=== PATIENT | male | born 1975 | race Two or more races ===

== ENCOUNTER 2017-09-16 23:50 | Emergency (ER) | payer OTHER ==
[~2017-09-16] VITALS: Ht 177.8 cm; Wt 113.5 kg
[2017-09-16 23:55] VITALS: Ht 177.8 cm; Wt 113.5 kg
--- NOTE | 2017-09-17 01:25 | ERD ---
ER Documentation Chief Complaint Chief Complaint hemorrhoid pain HPI The patient is a 42-year-old male, presenting to the ER because of hemorrhoidal pain. He had hemorrhoid surgery about 16 weeks ago in [place]. He had a plastic device placed inside the rectum and was supposed to have this device removed 8 weeks ago. However he did not go back to see his surgeon, he saw his primary care physician Dr. Molina yesterday who asked him to go to the ER.. He denies fever, chills, neck pain, chest pain with exertion/vomiting/ palpitation/diaphoresis. He complains of minimal right-sided chest discomfort due to right chest surgery from complications of pneumonia in 2009 in [facility]. He does not smoke nor drink ROS All systems reviewed and are negative except as per history of present illness. Medications Home Meds No Active Prescriptions or Reported Meds Allergies Allergies: Uncoded Allergies: antibiotics (Adverse Reaction, Mild, rashes, 09/17/17) Physical Exam Vitals Vital Signs Date Time Temp Pulse Resp B/P Pulse Ox O2 Delivery O2 Flow Rate FiO2 09/17/17 01:30 97.5 75 18 130/88 98 Room Air 09/16/17 23:55 97.5 80 18 138/85 97 Physical Exam Const: No acute distress. Head: Atraumatic. Eyes: Normal Conjunctiva. ENT: Normal External Ears, Nose and Mouth. Neck: Full range of motion. No meningismus. Resp: Clear to auscultation bilaterally. Cardio: Regular rate and rhythm. Abd: Soft, non distended, normal bowel sounds, non tender. Skin: No petechiae or rashes. Back: No midline or flank tenderness. Ext: No cyanosis, or edema. Rectal: There are two plastic strings extending beyond the rectum. No active bleeding Neur: Awake and alert. No focal deficit Psych: Normal Mood and Affect. Result Diagram: 09/17/1710409/17/17104 Results 24 hrs Laboratory Tests Test 09/17/17 01:05 White Blood Count 4.310^3/ul Red Blood Count 5.2910^6/ul Hemoglobin 16.5g/dl Hematocrit 46.9% Mean Corpuscular Volume 88.7fl Mean Corpuscular Hemoglobin 31.2pg Mean Corpuscular Hemoglobin Concent 35.2g/dl Red Cell Distribution Width 12.9% Platelet Count 49350^3/UL Mean Platelet Volume 10.8fl Neutrophils % 49.5% Lymphocytes % 39.4% Monocytes % 7.6% Eosinophils % 2.1% Basophils % 1.2% Nucleated Red Blood Cells % 0.0/100WBC Neutrophils # 2.110^3/ul Lymphocytes # 1.710^3/ul Monocytes # 0.310^3/ul Eosinophils # 0.110^3/ul Basophils # 0.110^3/ul Nucleated Red Blood Cells # 0.010^3/ul Prothrombin Time 13.2Sec Prothrombin Time Ratio 1.0 INR International Normalized Ratio 1.00 Activated Partial Thromboplast Time 28.3Sec Sodium Level 140mmol/L Potassium Level 4.3mmol/L Chloride Level 107mmol/L Carbon Dioxide Level 25mmol/L Anion Gap 12 Blood Urea Nitrogen 13mg/dl Creatinine 0.90mg/dl Glucose Level 140mg/dl Calcium Level 9.3mg/dl Total Bilirubin 0.3mg/dl Direct Bilirubin 0.00mg/dl Indirect Bilirubin 0.3mg/dl Aspartate Amino Transf (AST/SGOT) 61IU/L Alanine Aminotransferase (ALT/SGPT) 59IU/L Alkaline Phosphatase 88IU/L Total Protein 8.0g/dl Albumin 4.0g/dl Globulin 4.00g/dl Albumin/Globulin Ratio 1.00 Procedures/[place] [id number] Radiology Main Line: [phone] DIAGNOSTIC IMAGING REPORT Patient: HEATHER REEVES : 1975 Age: 42 Sex: M [id number] DOS: 09/17/17 [facility] Ordering MD: NATALYA VINES MD Location: E/R Room/Bed: PROCEDURE: CT Chest without contrast. CLINICAL INDICATION: Chest pain TECHNIQUE: CT scan of the chest without contrast was performed on a multidetector high-resolution CT scanner. Coronal and sagittal reformatted images were obtained from the axial source images. The total exam CTDI equals 16.37 mGymGy and the total exam DLP equals 668.66 mGy.cm mGy-cm. One or more of the following dose reduction techniques were used: automated exposure control, adjustment of the mA and/or kV according to patient size, or use of iterative reconstruction technique. COMPARISON: DR BROWN 09/17/2017 FINDINGS: There is marked elevation of the right hemidiaphragm and linear atelectasis in the right middle and lower lobes. Right upper lobe linear densities are also seen. Mass effect on the right heart is noted. There is no subphrenic fluid collection. No focal opacification, pleural effusion, pneumothorax, or nodules are seen. No mass lesion to suggest neoplasm is identified. The central tracheobronchial tree is clear. The mediastinum is unremarkable without evidence for mass or lymphadenopathy. The vascular structures of the mediastinum are normal in course and caliber. Coronary artery calcifications are present. The heart size is normal without evidence for pericardial thickening or effusion. The thyroid gland is normal. The axillary regions, subpectoral regions, and supraclavicular regions are all unremarkable. The surrounding chest wall is unremarkable. Imaging obtained through the upper abdomen demonstrates an enlarged, nodular liver with severe caudate lobe hypertrophy. Recanalized paraumbilical vein and collateral vessels are visualized. The spleen is enlarged. There is an old posterior left sixth rib fracture. No osteolytic or osteoblastic lesion is detected. IMPRESSION: 1. Marked elevation of the right hemidiaphragm and associated atelectasis. 2. No fluid collection, mass, lymphadenopathy, or focal acute infiltrate is identified. 3. Severe coronary calcification, advanced for age.. 4. Cirrhotic liver, splenomegaly and portal hypertension. Physician Roxanne Date Time Electronically viewed and signed by Physician Roxanne on 09/17/2017 04: 26 CS/ CC: NATALYA VINES MD [place] [id number] Radiology Main Line: [phone] DIAGNOSTIC IMAGING REPORT Patient: HEATHER REEVES : 1975 Age: 42 Sex: M MR #: [id number] DOS: 09/17/17 0000 Ordering MD: NATALYA VINES MD Location: E/R Room/Bed: PROCEDURE: XR Chest. CLINICAL INDICATION: Chest pain. TECHNIQUE: AP Portable chest. COMPARISON: No pertinent prior examinations were submitted for comparison. FINDINGS: There is apparent marked elevation of the right hemidiaphragm with adjacent compressive changes. The right heart border is obscured. The left lung is clear. No pneumothorax is seen. The aorta is normal. The osseous structures are intact. IMPRESSION: Severe elevation of the right hemidiaphragm with adjacent atelectasis. Subphrenic fluid collection is not excluded. CT is recommended Physician Roxanne Date Time Electronically viewed and signed by Sherly Mann Physician on 09/17/2017 03: 33 CS/ CC: NATALYA VINES MD EK hours Read by emergency physician Rate/Rhythm: Normal Sinus Rhythm 77 beats/min QRS, ST, T-waves: No ST elevation, no T inversion, LAD Impression: Abnormal EKG MEDICAL MAKING DECISION: The patient is a 42-year-old male, presenting with postop pain form hemorrhoid surgery about 16 weeks ago. He also complained of right-sided chest discomfort due to previous surgery, the chest CT did not show any acute abnormality. He is stable for outpatient follow-up. Consultation: I discussed the patient with the on-call general surgeon Dr. Desai, who was made aware of the patient condition. He agreed to see the patient in the office Departure Diagnosis: Primary Impression: Post-op pain Additional Impression: Post-op foreign body Condition: Good Comments I discussed the findings with the patient. I advised the patient to follow-up with Dr. Desai in about 1-2 days, sooner if needed and return if any concern. The patient's blood pressure was elevated (>120/80) but appears stable without evidence of hypertension emergency or urgency. The patient was counseled about the risks of hypertension and urged to pursue outpatient monitoring and therapy within a week with their primary care physician. NATALYA VINES MD Sep 17, 2017 01:25
[2017-09-17 01:30] VITALS: BP 130/88; PULSE 75; RESP 18; TEMP 97.5
[2017-09-17 02:04] LABS: BASOPHIL # 0.1 10^3/ul (0.0-0.1); BASOPHILS % 1.2 % (0.0-2.0); EOSINOPHILS # 0.1 10^3/ul (0.0-0.5); EOSINOPHILS % 2.1 % (0.0-7.0); HEMATOCRIT 46.9 % (42.0-52.0); HEMOGLOBIN 16.5 g/dl (14.0-18.0); LYMPHOCYTES # 1.7 10^3/ul (0.8-2.9); LYMPHOCYTES % 39.4 % (15.0-51.0); MEAN CORPUSCULAR HEMOGLOBIN 31.2 pg (29.0-33.0); MEAN CORPUSCULAR HGB CONC 35.2 g/dl (32.0-37.0); MEAN CORPUSCULAR VOLUME 88.7 fl (82.0-101.0); MEAN PLATELET VOLUME 10.8 fl (7.4-10.4); MONOCYTE # 0.3 10^3/ul (0.3-0.9); MONOCYTES % 7.6 % (0.0-11.0); NEUTROPHIL # 2.1 10^3/ul (1.6-7.5); NEUTROPHILS % 49.5 % (39.0-77.0); PLATELET COUNT 141 10^3/UL (140-415); RED BLOOD COUNT 5.29 10^6/ul (4.70-6.10); RED CELL DISTRIBUTION WIDTH 12.9 % (11.5-14.5); WHITE BLOOD COUNT 4.3 10^3/ul (4.8-10.8)
[2017-09-17 02:07] LABS: PROTIME 13.2 Sec (12.2-14.2)
[2017-09-17 02:08] LABS: PARTIAL THROMBOPLASTIN TIME 28.3 Sec (25.0-35.0)
[2017-09-17 02:27] LABS: BILIRUBIN,INDIRECT 0.3 mg/dl (0-1.1); BILIRUBIN,TOTAL 0.3 mg/dl (0.2-1.3); CALCIUM 9.3 mg/dl (8.4-10.2); CREATININE 0.9 mg/dl (0.61-1.24); POTASSIUM 4.3 mmol/L (3.5-5.1)
--- NOTE | 2017-09-17 03:33 | RADRPT ---
PROCEDURE: XR Chest. CLINICAL INDICATION: Chest pain. TECHNIQUE: AP Portable chest. COMPARISON: No pertinent prior examinations were submitted for comparison. FINDINGS: There is apparent marked elevation of the right hemidiaphragm with adjacent compressive changes. The right heart border is obscured. The left lung is clear. No pneumothorax is seen. The aorta is christopher l. The osseous structures are intact. IMPRESSION: Severe elevation of the right hemidiaphragm with adjacent atelectasis. Subphrenic fluid collection i s not excluded. CT is recommended Physician Roxanne Date Time Electronically viewed and signed by Physician Roxanne on 09/17/2017 03:33 CS/
--- NOTE | 2017-09-17 04:26 | RADRPT ---
PROCEDURE: CT Chest without contrast. CLINICAL INDICATION: Chest pain TECHNIQUE: CT scan of the chest without contrast was performed on a multidetector high-resolution CT scanner. Coronal and sagittal reformatted images were obtained from the axial source images. The total exam CTDI equals 16.37 mGymGy and the total exam DLP equals 668.66 mGy.cm mGy-cm. One or more of the following dose reduction techniques were used: automated exposure control, adjustment of the mA and/or kV according to patient size, or use of iterative reconstruction technique. COMPARISON: DR BROWN 09/17/2017 FINDINGS: There is marked elevation of the right hemidiaphragm and linear atelectasis in the right middle and lower lobes. Right upper lobe linear densities are also seen. Mass effect on the right heart is note d. There is no subphrenic fluid collection. No focal opacification, pleural effusion, pneumothorax, or nodules are seen. No mass lesion to suggest neoplasm is identified. The central tracheobronchia l tree is clear. The mediastinum is unremarkable without evidence for mass or lymphadenopathy. The vascular structur es of the mediastinum are normal in course and caliber. Coronary artery calcifications are present. The heart size is normal without evidence for pericardial thickening or effusion. The thyroid glan d is normal. The axillary regions, subpectoral regions, and supraclavicular regions are all unremarkable. The mead rrounding chest wall is unremarkable. Imaging obtained through the upper abdomen demonstrates an en larged, nodular liver with severe caudate lobe hypertrophy. Recanalized paraumbilical vein and shelby ateral vessels are visualized. The spleen is enlarged. There is an old posterior left sixth rib frac ture. No osteolytic or osteoblastic lesion is detected. IMPRESSION: 1. Marked elevation of the right hemidiaphragm and associated atelectasis. 2. No fluid collection, mass, lymphadenopathy, or focal acute infiltrate is identified. 3. Severe coronary calcification, advanced for age.. 4. Cirrhotic liver, splenomegaly and portal hypertension. Physician Roxanne Date Time Electronically viewed and signed by Physician Roxanne on 09/17/2017 04:26 CS/
== END 2017-09-17 05:24 | disposition home or self-care (01) ==
LOC: E/R 23:50
DX: G89.18 Other acute postprocedural pain (principal); K64.8 Other hemorrhoids; R06.02 Shortness of breath
CPT/HCPCS: 36415; 71010; 71250; 80053; 85025; 85610; 85730; 86850; 86900; 86901; 93005